=== PATIENT | male | born 1980 | race Two or more races ===

== ENCOUNTER 2019-02-25 07:22 | Outpatient (CLI) | payer OTHER | END 2019-02-25 07:26 | disposition home or self-care (01) | LOC: SONOGRAMA 07:22 | DX: Z68.28 Body mass index [BMI] 28.0-28.9, adult (principal); K11.6 Mucocele of salivary gland; R16.0 Hepatomegaly, not elsewhere classified; D73.89 Other diseases of spleen; R94.6 Abnormal results of thyroid function studies; H93.13 Tinnitus, bilateral; D72.818 Other decreased white blood cell count; M51.16 Intervertebral disc disorders with radiculopathy, lumbar region ==